=== PATIENT | female | born 1980 | race Caucasian/White ===

== ENCOUNTER 2017-03-24 20:45 | Emergency (ER) | payer MEDICAID, OTHER ==
[2017-03-24] MEDS ORDERED: LIDOCAINE HCL 1% 50 MG/5 ML SOL INFIL ONE (20:55)
[2017-03-24] MEDS ORDERED: LIDOCAINE HCL 1% MPF SOL ONE (20:55)
[2017-03-24 21:03] VITALS: BP 137/66; PULSE 80; RESP 16; TEMP 98; O2SAT 98
== END 2017-03-24 21:33 | disposition home or self-care (01) | DRG 605 ==
LOC: ED 20:45
DX: S01.81XA Laceration without foreign body of other part of head, initial encounter (principal); W01.198A Fall on same level from slipping, tripping and stumbling with subsequent striking against other object, initial encounter
CPT/HCPCS: 12013; 99283; A6402; J2001

== ENCOUNTER 2017-03-25 12:59 | Emergency (ER) | payer OTHER ==
[2017-03-25 14:25] VITALS: BP 103/65; PULSE 92; RESP 18; TEMP 98; O2SAT 99
== END 2017-03-25 14:22 | disposition home or self-care (01) | DRG 605 ==
LOC: ED 12:59
DX: S80.01XA Contusion of right knee, initial encounter (principal); W19.XXXA Unspecified fall, initial encounter
CPT/HCPCS: 73562; 99282; E0114

== ENCOUNTER 2017-08-22 13:46 | Emergency (ER) | payer OTHER ==
[2017-08-22 13:46] VITALS: O2SAT 99
[2017-08-22 14:02] VITALS: BP 121/94; PULSE 91; RESP 20; TEMP 97.7
[2017-08-22] MEDS ORDERED: CEFTRIAXONE 1 GM PDS IM ONE (14:05)
[2017-08-22] MEDS ORDERED: CEFTRIAXONE 1 GM PDS ONE (14:08)
== END 2017-08-22 14:24 | disposition home or self-care (01) | DRG 607 ==
LOC: ED 13:46
DX: L53.8 Other specified erythematous conditions (principal); Z98.890 Other specified postprocedural states
CPT/HCPCS: 99282; J0696